=== PATIENT | male | born 2000 | race African-American/Black ===

== ENCOUNTER 2025-01-21 12:39 | Outpatient (CLI) | payer BC ==
[2025-01-22 10:40] LABS: Hepatitis B Surface Antigen Negative (Negative)
[2025-01-23 03:07] LABS: Chlamydia Trachomatis, NAA Negative (Negative); Neisseria gonorrhoeae, NAA Negative (Negative)
== END 2025-01-21 17:00 | disposition home or self-care (01) ==
LOC: LAB 12:39
PROVIDERS: ATTEND Nurse Practitioner Family
DX: Z11.3 Encounter for screening for infections with a predominantly sexual mode of transmission (principal); Z20.2 Contact with and (suspected) exposure to infections with a predominantly sexual mode of transmission
CPT/HCPCS: 36415; 86703; 86706; 86780; 86803; 87340